=== PATIENT | female | born 1960 | race Caucasian/White ===

== ENCOUNTER 2024-01-31 15:12 | Emergency (ER) | payer SELFPAY ==
[2024-01-31 15:20] VITALS: BP 141/83
[2024-01-31] MEDS: TORADOL 30 MG IM (17:22)
[2024-01-31] MEDS: TYLENOL 650 MG PO (17:22)
[2024-01-31 17:28] VITALS: BP 178/85
--- NOTE | 2024-01-31 17:49 | ED.GENMED ---
History of Present Illness
General
Chief Complaint: Musculo-Skeletal Complaint
Source: patient and spouse
Exam Limitations: none
Time Seen by Provider: 01/31/24 16:26
Nursing documentation reviewed up to this point in time: agreed with
History of Present Illness
History of Present Illness:
63-year-old female past medical history of hypertension presenting to the emergency department today with concerns of right-sided ankle discomfort after rolling her ankle when moving a couch. Difficulty walking since. Pain mainly to the lateral
aspect. Denies any additional injuries no numbness or weakness.
Past History
Past History
ED Past Medical History: HTN, NIDDM and Other (Pancreatitis due to ductal stone)
ED Past Surgical History: Cholecystectomy
Social History
Tobacco: Non-smoker
Alcohol: None
Personal:
Living: with family
Employment: Employed ([employer] )
Review of Systems
Review of Systems
Allergies reviewed?: Yes
All Other Systems: ROS reviewed and negative except as documented in HPI and ROS
Phy Exam
Physical Exam
Physical Exam:
GENERAL: Alert , in no apparent distress
EYE: pupils equal and reactive
NECK: Supple, no significant adenopathy.
ENT: o/p clr, mmm.
CARDIAC: Regular rate and rhythm .
LUNGS: Clear breath sounds bilaterally, no acute respiratory distress, no wheezes/rales/rhonchi
ABDOMEN: Soft, without focal tenderness, no r/g, no cvat
NEUROLOGICAL: Alert and oriented, no focal neuro deficits
SKIN: Warm and dry, skin intact.
MUSCULOSKELETAL: Right-sided lateral malleolus swelling tenderness palpation mainly to the anterior aspect no posterior pain no Achilles pain no heel pain no foot pain midfoot or forefoot. No medial malleolus discomfort. Increased pain with any
inversion movement, well perfused.
PSYCH: Normal and appropriate interaction.
Course
Orders/Labs/Results
Orders:
Orders
01/31/24 15:15
CR Ankle - Right Min 3 Views * Urgent
Comment:
Reason For Exam: injury/pain
01/31/24 17:14
Crutches-Treatment ONCE
boot [Ortho Boot Right- Treatment] ONCE
Short or tall?: Tall
Acetaminophen [Tylenol] 650 mg PO NOW STA
Ketorolac [Toradol] 30 mg IM NOW STA
Vital Signs
Initial and Last Documented VS:
Initial Vital Signs
Temp Pulse Resp BP Pulse Ox
98.3 F 98 16 141/83 98
01/31/24 15:20 01/31/24 15:20 01/31/24 15:20 01/31/24 15:20 01/31/24 15:20
Last Documented Vital Signs
Temp Pulse Resp BP Pulse Ox
98.3 F 87 16 178/85 98
01/31/24 15:20 01/31/24 17:28 01/31/24 17:28 01/31/24 17:28 01/31/24 17:28
MDM/Problems Addressed
MDM/Problems Addressed:
63-year-old female presenting to the emergency department today with concerns of right-sided ankle discomfort after injuring her ankle prior to arrival by rolling her ankle. X-ray without signs of fracture. Neuro vastly intact. Blood pressure
elevated but notified to follow-up for this but otherwise no emergent findings. Patient was given a boot and crutches and advised for close follow-up.
*Critical Care Note
Total Time (30-74mins, 75-104mins- exclusive of procedures): Not Applicable
ED Attending Note
-
Portions of this chart may have been created with voice recognition software.� Occasional wrong word or��sound alike� substitutions may have occurred due to the inherent limitations of voice recognition software.
Discharge Plan
Departure
Patient Disposition: Home (Routine Discharge)
Date of Disposition: 01/31/24
Time of Disposition: 17:49
Patient with high blood pressure during this ER visit?: No
Condition: Good
Covid-19: Not Applicable
Discharge Problem:
Right ankle sprain
Instructions: Sprain (DC)
Prescriptions:
No Action
cyclobenzaprine 10 MG tablet
10 mg PO PRN PRN (Reason: back)
metformin 500 MG tablet
500 mg PO BID
lisinopril-hydrochlorothiazide 1 EACH tablet
1 ea PO DAILY
Simvastatin
1 tab PO DAILY
Patient Comments:
pt does not know mg
metronidazole 500 MG tablet
500 mg PO TID Qty: 21 0RF
levofloxacin 500 MG tablet
500 mg PO DAILY Qty: 7 0RF
oxycodone 5 MG tablet
5 mg PO Q6H PRN (Reason: pain) Qty: 14 0RF
ondansetron [Zofran ODT] 8 MG tablet,disintegrating
8 mg PO TID PRN (Reason: nausea/vomiting) Qty: 15 0RF
Referrals:
George Waller MD [Active] - Follow up in 5-7 days
Mabel Kearns MD [Family Provider] -
Activity Restrictions/Additional Instructions:
You came to the emergency department today with concerns of right-sided ankle discomfort. Here you had an x-ray without signs of fracture. This is likely a sprain. Please rest ice compress and elevate over the next few days and follow-up closely
if symptoms or not improving rapidly. Return to the emergency department for any worsening, new or concerning symptoms.
Interventions
Interventions:
*Risk Screen - Suicide Last Done: 01/31/24 15:20
*General Assessment Last Done: 01/31/24 15:20
*Neglect/Abuse Screening Last Done: 01/31/24 15:20
ED- Fall Risk Assessment Last Done: 01/31/24 17:29
*ED COVID-19 Vaccine History Last Done: 01/31/24 16:25
*Nursing Disposition Last Done: 01/31/24 17:53
ED-Musculoskeletal Assessment Last Done: 01/31/24 16:24
Discharge Date and Time
Discharge Date/Time: 01/31/24 17:54
Print Language: SLOVENIAN
== END 2024-01-31 17:54 | disposition home or self-care (01) ==
LOC: EMR 15:12
PROVIDERS: EMERGENCY PHYSICIAN Emergency Medicine; FAMILY PHYSICIAN Family Medicine
DX: S93.401A Sprain of unspecified ligament of right ankle, initial encounter (principal); X50.1XXA Overexertion from prolonged static or awkward postures, initial encounter; I10 Essential (primary) hypertension; E11.9 Type 2 diabetes mellitus without complications; Z90.49 Acquired absence of other specified parts of digestive tract
CPT/HCPCS: 99284; 96372; 73610